=== PATIENT | male | born 1975 | race African-American/Black ===

== ENCOUNTER 2017-07-21 09:13 | Emergency (ER) | payer SELFPAY ==
[~2017-07-21] VITALS: Ht 182.9 cm; Wt 97.6 kg
[2017-07-21 09:13] VITALS: BP 169/107
[2017-07-21] MEDS ORDERED: [UNRECOGNIZED DRUG - CODE] PO (09:22)
[2017-07-21] MEDS ORDERED: METHOCARBAMOL 500 MG TAB PO ONE (09:45)
[2017-07-21] MEDS ORDERED: NORCO, ANEXSIA 5/325MG TABLET (HYDROcodone/ACETAMINOPHEN) PO ONE (09:45)
[2017-07-21] MEDS ORDERED: IBUPROFEN 800 MG TAB PO ONE (09:45)
[2017-07-21] MEDS ORDERED: IBUP80TA PO (09:49)
[2017-07-21] MEDS ORDERED: ROBA500T PO (09:49)
[2017-07-21] MEDS ORDERED: NORCOTAB PO (09:49)
== END 2017-07-21 10:04 | disposition home or self-care (01) ==
LOC: M ED 09:13
DX: S39.012A Strain of muscle, fascia and tendon of lower back, initial encounter (principal); X50.9XXA Other and unspecified overexertion or strenuous movements or postures, initial encounter; Y92.89 Other specified places as the place of occurrence of the external cause; Y93.B2 Activity, push-ups, pull-ups, sit-ups; Y99.8 Other external cause status; I10 Essential (primary) hypertension; Z79.899 Other long term (current) drug therapy